=== PATIENT | female | born 1940 | race African-American/Black ===

== ENCOUNTER 2019-02-27 09:35 | Inpatient (IN) ==
[2019-02-27] MEDS ORDERED: ASPIRIN 325 MG TABLET PO STA (10:13)
[2019-02-27] MEDS ORDERED: ONDANSETRON 4 MG/2 ML VIAL IV PRN (10:46)
[2019-02-27] MEDS ORDERED: PROMETHAZINE 25 MG/1 ML VIAL IM PRN (10:46)
[2019-02-27] MEDS ORDERED: ACETAMINOPHEN 325 MG TABLET PO PRN (10:46)
[2019-02-27] MEDS ORDERED: BISACODYL 5 MG TABLET PO PRN (10:46)
[2019-02-27 10:48] LABS: Basophils % 0.3 % (0.0-0.8); Eosinophils % 0.4 % (0.00-10.9); Hematocrit 41.8 VOL% (35.7-47.0); Hemoglobin 13.3 GM/DL (12.0-16.0); Immature Granulocytes % 0.3 %; Immature Granulocytes Absolute 0.02 #; Lymphocytes # 1.7 10*3/uL (1.4-4.0); Lymphocytes % 25.2 % (21.3-54.2); Mean Corpuscular HGB Conc 31.8 GM/DL (32-36); Mean Corpuscular Hemoglobin 31 PG (27-34); Mean Corpuscular Volume 96.5 FL (87-102); Mean Platelet Volume 9.1 FL (9.6-12.0); Monocytes # 0.4 10*3/uL (0.11-0.8); Neutrophils # 4.6 10*3/uL (1.4-7.4); Neutrophils % 67.8 % (38.7-73.9); Platelet Count 277 T/CUMM (130-400); Red Blood Count 4.33 MC/CUMM (3.8-5.5); Red Cell Distribution Width 14.2 % (9.3-17.3); White Blood Count 6.8 T/CUMM (4-12)
[2019-02-27 10:55] LABS: PT Patient Result 10.7 SECS
[2019-02-27 11:07] LABS: Amorphous Crystals,Urine Few /HPF (Few); Apearance,Urine Slightly Hazy (Clear); Bilirubin,Urine Negative (Negative); Blood, Urine Negative (Negative); Glucose,Urine (UA) Negative (Negative); Ketones,Urine 5 mg/dL (Negative); Mucus,Urine Occasional /LPF (Occasional); Nitrite,Urine Negative (Negative); Protein,Urine Negative; RBC,Urine 1 /HPF (0-4); Urine Color Yellow (Yellow); Urine Specific Gravity 1.012 (1.001-1.035)
[2019-02-27 11:08] LABS: Calcium 9.8 MG/DL (8.5-10.1); Osmolality,Calculated 279.4 MOS/KG (273-304); Potassium 3.3 MMOL/L (3.5-5.1); Total Protein 8.4 G/DL (6.4-8.3)
[2019-02-27] MEDS: SODIUM CHLORIDE 0.9% 1,000 ML IV SCH (16:37)
[2019-02-27] MEDS: CLOPIDOGREL 75 MG TABLET PO SCH (16:37)
[2019-02-27] MEDS ORDERED: ENOXAPARIN 40 MG/0.4 ML SYRINGE SUBCUT SCH (18:00)
[2019-02-27] MEDS: POTASSIUM CHLORIDE 20 MEQ TABLET PO PRN ×3 (20:42→22:48)
[2019-02-27] MEDS: CARVEDILOL 12.5 MG TABLET PO SCH (20:42)
[2019-02-27] MEDS ORDERED: SIMVASTATIN 40 MG TABLET PO SCH (21:00)
[2019-02-28 05:25] LABS: Risk Ratio 3.62; VLDL CHOLESTEROL 13.4 MG/DL
[2019-02-28] MEDS: SODIUM CHLORIDE 0.9% 1,000 ML IV SCH ×2 (05:40→14:49)
[2019-02-28 06:16] LABS: Basophils % 0.3 % (0.0-0.8); Eosinophils % 0.3 % (0.00-10.9); Hematocrit 34.4 VOL% (35.7-47.0); Hemoglobin 10.9 GM/DL (12.0-16.0); Immature Granulocytes % 0.5 %; Immature Granulocytes Absolute 0.05 #; Lymphocytes # 1.1 10*3/uL (1.4-4.0); Lymphocytes % 10.4 % (21.3-54.2); Mean Corpuscular HGB Conc 31.7 GM/DL (32-36); Mean Corpuscular Hemoglobin 31 PG (27-34); Mean Corpuscular Volume 97.5 FL (87-102); Mean Platelet Volume 9.3 FL (9.6-12.0); Monocytes # 0.6 10*3/uL (0.11-0.8); Neutrophils # 8.3 10*3/uL (1.4-7.4); Neutrophils % 82.5 % (38.7-73.9); Platelet Count 231 T/CUMM (130-400); Red Blood Count 3.53 MC/CUMM (3.8-5.5); Red Cell Distribution Width 14.2 % (9.3-17.3); White Blood Count 10.1 T/CUMM (4-12)
[2019-02-28] MEDS ORDERED: LOSARTAN/HCTZ 50-12.5 MG TABLET PO SCH (09:00)
[2019-02-28] MEDS ORDERED: ASPIRIN 325 MG TABLET PO SCH (09:00)
[2019-02-28] MEDS ORDERED: CETIRIZINE 10 MG TABLET PO SCH (09:00)
[2019-02-28] MEDS ORDERED: amLODIPine 5 MG TABLET PO SCH (09:00)
[2019-02-28] MEDS ORDERED: CHOLECALCIFEROL 1,000 UNIT TABLET PO SCH (09:00)
[2019-02-28] MEDS ORDERED: POTASSIUM CHLORIDE 20 MEQ TABLET PO SCH (09:00)
[2019-02-28] MEDS ORDERED: PANTOPRAZOLE 40 MG TABLET PO SCH (09:00)
[2019-02-28] MEDS: CARVEDILOL 12.5 MG TABLET PO SCH (10:03)
[2019-02-28] MEDS: CLOPIDOGREL 75 MG TABLET PO SCH (10:03)
[2019-02-28] MEDS ORDERED: LIDOCAINE 1%/EPI INJ 20 ML VIAL ONE ×2 (11:10→11:11)
[2019-02-28] MEDS ORDERED: TISSUE ADHESIVE 1 EACH APPLICATOR TOP ONE (11:12)
[2019-02-28 15:10] VITALS: BP 144/91
[2019-02-28] MEDS ORDERED: ROSUVASTATIN 20 MG TABLET PO SCH (21:00)
== END 2019-02-28 15:15 | DRG 41 ==
LOC: N.ED 09:35 → N.EDINP 10:46 → N.5E 14:30
PROVIDERS: ADMIT Internal Medicine; ATTEND Internal Medicine

== ENCOUNTER 2019-07-23 04:02 | Observation (INO) ==
[2019-07-23 04:50] LABS: Basophils % 0.3 % (0.0-0.8); Eosinophils # 0.1 10*3/uL (0.0-0.87); Eosinophils % 0.7 % (0.00-10.9); Hematocrit 36.3 VOL% (35.7-47.0); Hemoglobin 11.8 GM/DL (12.0-16.0); Immature Granulocytes % 0.3 %; Immature Granulocytes Absolute 0.02 #; Lymphocytes # 1.7 10*3/uL (1.4-4.0); Lymphocytes % 23.6 % (21.3-54.2); Mean Corpuscular HGB Conc 32.5 GM/DL (32-36); Mean Corpuscular Volume 95.5 FL (87-102); Mean Platelet Volume 9.4 FL (9.6-12.0); Monocytes % 10.1 % (1.7-12.7); Platelet Count 160 T/CUMM (130-400); Red Cell Distribution Width 15.7 % (9.3-17.3)
[2019-07-23 05:00] LABS: Alanine Aminotransferase < 9 U/L (13-56); Albumin 3.4 G/DL (3.4-5.0); Alkaline Phosphatase 56 U/L (45-117); Aspartate Amino Transferase 11 U/L (0-37); Blood Urea Nitrogen 14 MG/DL (7-18); Glucose 113 MG/DL (74-106); Total Protein 6.9 G/DL (6.4-8.3)
[2019-07-23 05:07] LABS: Amorphous Crystals,Urine Moderate /HPF (Few); Apearance,Urine CLOUDY (Clear); Bilirubin,Urine Negative (Negative); Blood, Urine Negative (Negative); Glucose,Urine (UA) Negative (Negative); Ketones,Urine Negative (Negative); Nitrite,Urine Negative (Negative); Protein,Urine 30 MG/DL
[2019-07-23 05:08] LABS: Urine Color Yellow (Yellow)
[2019-07-23 05:25] LABS: Barbiturates Screen,Urine Negative (Negative); Benzodiazepines Screen,Urine Negative (Negative); Cannabinoid Screen,Urine Negative (Negative); Opiate Screen,Urine Negative (Negative); Phencyclidine Screen,Urine Negative (Negative)
[2019-07-23] MEDS ORDERED: ACETAMINOPHEN 325 MG TABLET PO PRN (08:48)
[2019-07-23] MEDS ORDERED: ASPIRIN EC 81 MG TABLET PO SCH (09:00)
[2019-07-23] MEDS ORDERED: ASPIRIN CHEW 81 MG TABLET PO ONE ×2 (11:00→12:28)
[2019-07-23] MEDS: SODIUM CHLORIDE 0.9% 1,000 ML IV SCH (11:10)
[2019-07-23] MEDS: PANTOPRAZOLE 40 MG TABLET PO SCH (11:11)
[2019-07-23] MEDS: CLOPIDOGREL 75 MG TABLET PO SCH (11:11)
[2019-07-23] MEDS: POTASSIUM CHLORIDE 20 MEQ TABLET PO SCH (11:11)
[2019-07-23] MEDS: ENOXAPARIN 40 MG/0.4 ML SYRINGE SUBCUT SCH (11:12)
[2019-07-23] MEDS ORDERED: PNEUMOCOCCAL VACCINE (13 VALENT) 0.5 ML SYRINGE IM ONE (12:57)
[2019-07-23] MEDS: CHOLECALCIFEROL 1,000 UNIT TABLET PO SCH (13:49)
[2019-07-23] MEDS ORDERED: ROSUVASTATIN 20 MG TABLET PO SCH (21:00)
[2019-07-24] MEDS: SODIUM CHLORIDE 0.9% 1,000 ML IV SCH ×2 (01:30→11:02)
[2019-07-24 04:36] LABS: Basophils % 0.5 % (0.0-0.8); Eosinophils # 0.1 10*3/uL (0.0-0.87); Hematocrit 33.3 VOL% (35.7-47.0); Immature Granulocytes % 0.3 %; Immature Granulocytes Absolute 0.02 #; Lymphocytes # 1.7 10*3/uL (1.4-4.0); Lymphocytes % 26.3 % (21.3-54.2); Mean Corpuscular Volume 94.3 FL (87-102); Mean Platelet Volume 9.4 FL (9.6-12.0); Monocytes % 16.8 % (1.7-12.7); Neutrophils % 55.1 % (38.7-73.9); Platelet Count 156 T/CUMM (130-400); Red Blood Count 3.53 MC/CUMM (3.8-5.5); Red Cell Distribution Width 15.6 % (9.3-17.3); White Blood Count 6.3 T/CUMM (4-12)
[2019-07-24 05:00] LABS: Blood Urea Nitrogen 9 MG/DL (7-18); Calcium 9.2 MG/DL (8.5-10.1); Glucose 96 MG/DL (74-106); HDL Cholesterol 17 MG/DL (40-60); Osmolality,Calculated 284.8 MOS/KG (273-304); Risk Ratio 2.94; Triglycerides 63 MG/DL (2-150); VLDL CHOLESTEROL 12.6 MG/DL
[2019-07-24 05:04] LABS: Eosinophils 5 % (0-10); Hypochromasia 1+; Lymphocytes 23 % (20-55); Platelet Estimate Adequate; Segmented Neutrophils 59 % (50-85); Total Cells Counted 100
[2019-07-24] MEDS: ENOXAPARIN 40 MG/0.4 ML SYRINGE SUBCUT SCH (08:51)
[2019-07-24] MEDS: CHOLECALCIFEROL 1,000 UNIT TABLET PO SCH (08:51)
[2019-07-24] MEDS: POTASSIUM CHLORIDE 20 MEQ TABLET PO SCH (08:51)
[2019-07-24] MEDS: CLOPIDOGREL 75 MG TABLET PO SCH (08:52)
[2019-07-24] MEDS: PANTOPRAZOLE 40 MG TABLET PO SCH (08:52)
[2019-07-24] MEDS ORDERED: ASPIRIN EC 81 MG TABLET PO SCH (09:00)
[2019-07-24 11:58] VITALS: BP 110/68
== END 2019-07-24 13:50 | disposition home or self-care (01) ==
LOC: EDUNIT# → EDBD → N.EDINP 04:02 → N.ED 04:02 → N.TELES 12:00
PROVIDERS: ADMIT Internal Medicine; ATTEND Internal Medicine

== ENCOUNTER 2020-01-11 09:18 | Inpatient (IN) ==
[2020-01-11 10:21] LABS: Basophils % 0.4 % (0.0-0.8); Eosinophils # 0.1 10*3/uL (0.0-0.87); Eosinophils % 1.2 % (0.00-10.9); Hematocrit 33.9 VOL% (35.7-47.0); Hemoglobin 11.3 GM/DL (12.0-16.0); Immature Granulocytes % 0.1 %; Immature Granulocytes Absolute 0.01 #; Lymphocytes # 1.5 10*3/uL (1.4-4.0); Lymphocytes % 21.8 % (21.3-54.2); Mean Corpuscular HGB Conc 33.3 GM/DL (32-36); Mean Corpuscular Volume 93.9 FL (87-102); Mean Platelet Volume 9.9 FL (9.6-12.0); Monocytes % 10.4 % (1.7-12.7); Neutrophils % 66.1 % (38.7-73.9); Platelet Count 166 T/CUMM (130-400); Red Blood Count 3.61 MC/CUMM (3.8-5.5); Red Cell Distribution Width 16.3 % (9.3-17.3); White Blood Count 6.7 T/CUMM (4-12)
[2020-01-11 10:40] LABS: INR 1.2; PT Patient Result 12.6 SECS (9.6-12.2); Partial Thromboplastin Time 27.1 SECS (20.8-36.0)
[2020-01-11 10:46] LABS: Albumin 3.5 G/DL (3.4-5.0); Calcium 9.6 MG/DL (8.5-10.1); Osmolality,Calculated 276.7 MOS/KG (273-304)
[2020-01-11 11:08] LABS: Amorphous Crystals,Urine Moderate /HPF (Few); Apearance,Urine CLOUDY (Clear); Bilirubin,Urine Negative (Negative); Blood, Urine Small mg/dL (Negative); Glucose,Urine (UA) Negative (Negative); Ketones,Urine Negative (Negative); Mucus,Urine Occasional /LPF (Occasional); Nitrite,Urine Negative (Negative); Protein,Urine 30 MG/DL; RBC,Urine 3 /HPF (0-4); Urine Color Yellow (Yellow); Urine Specific Gravity 1.015 (1.001-1.035); WBC,Urine 1 /HPF (0-6)
[2020-01-11] MEDS ORDERED: ACETAMINOPHEN 325 MG TABLET PO PRN (11:11)
[2020-01-11] MEDS ORDERED: MORPHINE 4 MG/1 ML VIAL IV PRN (11:11)
[2020-01-11] MEDS ORDERED: ONDANSETRON 4 MG/2 ML VIAL IV PRN (11:11)
[2020-01-11] MEDS ORDERED: ALBUTEROL/IPRATROPIUM 3 ML NEB RESP TX PRN (11:11)
[2020-01-11] MEDS ORDERED: TUBERCULIN SKIN TEST 0.1 ML SYRINGE INTRADERM ONE (13:38)
[2020-01-11] MEDS ORDERED: ENOXAPARIN 40 MG/0.4 ML SYRINGE SUBCUT SCH (21:00)
[2020-01-12 06:25] LABS: Basophils % 0.3 % (0.0-0.8); Eosinophils # 0.1 10*3/uL (0.0-0.87); Eosinophils % 1.1 % (0.00-10.9); Hematocrit 32.5 VOL% (35.7-47.0); Hemoglobin 10.9 GM/DL (12.0-16.0); Immature Granulocytes % 0.2 %; Immature Granulocytes Absolute 0.01 #; Lymphocytes # 1.6 10*3/uL (1.4-4.0); Lymphocytes % 24.9 % (21.3-54.2); Mean Corpuscular HGB Conc 33.5 GM/DL (32-36); Mean Corpuscular Volume 93.1 FL (87-102); Mean Platelet Volume 10.2 FL (9.6-12.0); Monocytes % 9.8 % (1.7-12.7); Neutrophils % 63.7 % (38.7-73.9); Platelet Count 172 T/CUMM (130-400); Red Blood Count 3.49 MC/CUMM (3.8-5.5); Red Cell Distribution Width 16.5 % (9.3-17.3); White Blood Count 6.4 T/CUMM (4-12)
[2020-01-12 06:38] LABS: Albumin 3.3 G/DL (3.4-5.0); Bilirubin,Total 1.6 MG/DL (0.2-1.0); Calcium 9.4 MG/DL (8.5-10.1); Osmolality,Calculated 275.7 MOS/KG (273-304); Risk Ratio 4.19; Thyroid Stimulating Hormone 1.75 uIU/ml (0.358-3.74); Total Protein 6.9 G/DL (6.4-8.3); VLDL CHOLESTEROL 15.6 MG/DL
[2020-01-12] MEDS: carvediloL 6.25 MG TABLET PO SCH ×2 (08:29→19:00)
[2020-01-12] MEDS: CHOLECALCIFEROL 1,000 UNIT TABLET PO SCH (08:29)
[2020-01-12] MEDS: POTASSIUM CHLORIDE 20 MEQ TABLET PO SCH (08:29)
[2020-01-12] MEDS: ROSUVASTATIN 20 MG TABLET PO SCH (21:00)
[2020-01-13 05:03] LABS: Basophils % 0.3 % (0.0-0.8); Eosinophils # 0.1 10*3/uL (0.0-0.87); Eosinophils % 2.1 % (0.00-10.9); Hematocrit 32.5 VOL% (35.7-47.0); Hemoglobin 10.8 GM/DL (12.0-16.0); Immature Granulocytes % 0.2 %; Immature Granulocytes Absolute 0.01 #; Lymphocytes # 1.6 10*3/uL (1.4-4.0); Lymphocytes % 25.2 % (21.3-54.2); Mean Corpuscular HGB Conc 33.2 GM/DL (32-36); Mean Corpuscular Volume 93.7 FL (87-102); Monocytes % 13.4 % (1.7-12.7); Neutrophils % 58.8 % (38.7-73.9); Platelet Count 173 T/CUMM (130-400); Red Blood Count 3.47 MC/CUMM (3.8-5.5); Red Cell Distribution Width 16.2 % (9.3-17.3); White Blood Count 6.2 T/CUMM (4-12)
[2020-01-13 05:30] LABS: Bilirubin,Total 1.3 MG/DL (0.2-1.0); Calcium 9.3 MG/DL (8.5-10.1); Osmolality,Calculated 275.7 MOS/KG (273-304); Total Protein 6.5 G/DL (6.4-8.3)
[2020-01-13] MEDS: carvediloL 6.25 MG TABLET PO SCH ×3 (06:25→17:48)
[2020-01-13] MEDS ORDERED: LIDOCAINE 1% 5 ML VIAL ONE (06:40)
[2020-01-13] MEDS ORDERED: ROPIVACAINE 0.5% 30 ML VIAL ONE ×2 (06:40→07:44)
[2020-01-13] MEDS ORDERED: DEXAMETHASONE 4 MG/1 ML VIAL ONE ×2 (06:40→09:34)
[2020-01-13] MEDS ORDERED: MIDAZOLAM 2 MG/2 ML VIAL ONE (06:47)
[2020-01-13] MEDS ORDERED: fentaNYL 100 MCG/2 ML VIAL ONE ×2 (06:47→09:34)
[2020-01-13] MEDS ORDERED: TRANEXAMIC ACID 1,000 MG/10 ML VIAL ONE ×2 (07:16→09:34)
[2020-01-13] MEDS ORDERED: ceFAZolin 1,000 MG VIAL ONE (07:16)
[2020-01-13] MEDS ORDERED: BUPIVACAINE MPF 0.25% 30 ML VIAL ONE (07:17)
[2020-01-13] MEDS ORDERED: VANCOMYCIN 1,000 MG VIAL ONE (07:57)
[2020-01-13] MEDS ORDERED: propofoL 200 MG/20 ML VIAL IV ONE (09:33)
[2020-01-13] MEDS ORDERED: LIDOCAINE 2% 5 ML VIAL ONE (09:33)
[2020-01-13] MEDS ORDERED: SEVOFLURANE 1 UNIT/15 MINUTE INH ONE (09:33)
[2020-01-13] MEDS ORDERED: GLYCOPYRROLATE 0.4 MG/2 ML VIAL ONE (09:34)
[2020-01-13] MEDS ORDERED: ETOMIDATE 40 MG/20 ML VIAL IV ONE (09:34)
[2020-01-13] MEDS ORDERED: PHENYLEPHRINE 1 MG/10 ML SYRINGE IV ONE (09:34)
[2020-01-13] MEDS ORDERED: ONDANSETRON 4 MG/2 ML VIAL ONE (09:34)
[2020-01-13] MEDS ORDERED: PHENYLEPHRINE 10 MG/1 ML VIAL IV ONE (09:34)
[2020-01-13] MEDS ORDERED: ROCURONIUM 100 MG/10 ML VIAL IV ONE (09:35)
[2020-01-13] MEDS ORDERED: SUCCINYLCHOLINE 200 MG/10 ML VIAL ONE (09:35)
[2020-01-13] MEDS ORDERED: NEOSTIGMINE 10 MG/10 ML VIAL ONE (09:35)
[2020-01-13] MEDS: POTASSIUM CHLORIDE 20 MEQ TABLET PO SCH (11:00)
[2020-01-13] MEDS: CHOLECALCIFEROL 1,000 UNIT TABLET PO SCH (11:00)
[2020-01-13] MEDS: ceFAZolin 1,000 MG in SYRINGE 1 EACH IV SCH ×2 (13:51→21:19)
[2020-01-13] MEDS: VANCOMYCIN INJ 1,000 MG in SODIUM CHLORIDE 0.9% 250 ML IV SCH (18:49)
[2020-01-13] MEDS: ROSUVASTATIN 20 MG TABLET PO SCH (21:19)
[2020-01-14] MEDS: VANCOMYCIN INJ 1,000 MG in SODIUM CHLORIDE 0.9% 250 ML IV SCH (05:53)
[2020-01-14 06:24] LABS: Basophils % 0.2 % (0.0-0.8); Hematocrit 27.3 VOL% (35.7-47.0); Immature Granulocytes % 0.4 %; Immature Granulocytes Absolute 0.04 #; Lymphocytes # 1.8 10*3/uL (1.4-4.0); Lymphocytes % 18.8 % (21.3-54.2); Mean Corpuscular Volume 93.5 FL (87-102); Mean Platelet Volume 10.2 FL (9.6-12.0); Monocytes % 15.6 % (1.7-12.7); Platelet Count 172 T/CUMM (130-400); Red Blood Count 2.92 MC/CUMM (3.8-5.5); Red Cell Distribution Width 16.2 % (9.3-17.3); White Blood Count 9.3 T/CUMM (4-12)
[2020-01-14 06:45] LABS: Alanine Aminotransferase < 9 U/L (13-56); Albumin 2.7 G/DL (3.4-5.0); Alkaline Phosphatase 59 U/L (45-117); Aspartate Amino Transferase 12 U/L (0-37); Blood Urea Nitrogen 19 MG/DL (7-18); Estimated Glom Filtration Rate 71 ML/MIN; Glucose 111 MG/DL (74-106); Osmolality,Calculated 275.8 MOS/KG (273-304); Total Protein 5.9 G/DL (6.4-8.3)
[2020-01-14 06:49] LABS: Lymphocytes 17 % (20-55); Segmented Neutrophils 72 % (50-85); Total Cells Counted 100
[2020-01-14 06:50] LABS: Atypical Lymphocytes Few; Hypochromasia 1+; Macrocytosis 1+; Platelet Estimate Adequate
[2020-01-14] MEDS ORDERED: ASPIRIN EC 81 MG TABLET PO SCH (09:00)
[2020-01-14] MEDS: CLOPIDOGREL 75 MG TABLET PO SCH (10:00)
[2020-01-14] MEDS: CHOLECALCIFEROL 1,000 UNIT TABLET PO SCH (10:00)
[2020-01-14] MEDS: carvediloL 6.25 MG TABLET PO SCH ×2 (10:00→16:54)
[2020-01-14] MEDS: POTASSIUM CHLORIDE 20 MEQ TABLET PO SCH (10:01)
[2020-01-14] MEDS ORDERED: ASPIRIN EC 325 MG TABLET PO SCH (10:35)
[2020-01-14] MEDS: ROSUVASTATIN 20 MG TABLET PO SCH (20:21)
[2020-01-15] MEDS: CHOLECALCIFEROL 1,000 UNIT TABLET PO SCH (10:00)
[2020-01-15] MEDS: CLOPIDOGREL 75 MG TABLET PO SCH (10:00)
[2020-01-15] MEDS: carvediloL 6.25 MG TABLET PO SCH (10:00)
[2020-01-15] MEDS: POTASSIUM CHLORIDE 20 MEQ TABLET PO SCH (10:00)
[2020-01-15 11:44] VITALS: BP 90/57
== END 2020-01-15 14:00 | DRG 470 ==
LOC: N.ED 09:18 → SUATTDRO 11:11 → N.EDINP 11:11 → N.3E 12:53
PROVIDERS: ADMIT Internal Medicine; ATTEND Family Medicine

== ENCOUNTER 2020-11-26 11:48 | Inpatient (IN) ==
[2020-11-26 13:10] LABS: Basophils % 0.1 % (0.0-0.8); Eosinophils % 0.4 % (0.00-10.9); Hematocrit 26.2 VOL% (35.7-47.0); Hemoglobin 8.1 GM/DL (12.0-16.0); Immature Granulocytes % 0.8 %; Immature Granulocytes Absolute 0.08 #; Lymphocytes % 9.4 % (21.3-54.2); Mean Corpuscular HGB Conc 30.9 GM/DL (32-36); Mean Corpuscular Volume 92.9 FL (87-102); Mean Platelet Volume 9.2 FL (9.6-12.0); Monocytes % 23.9 % (1.7-12.7); Neutrophils % 65.4 % (38.7-73.9); Platelet Count 112 T/CUMM (130-400); Red Blood Count 2.82 MC/CUMM (3.8-5.5); Red Cell Distribution Width 18.3 % (9.3-17.3); White Blood Count 10.3 T/CUMM (4-12)
[2020-11-26 13:19] LABS: Urine Appearance Turbid (Clear); Urine Color Red (Yellow)
[2020-11-26 13:21] LABS: Protein,Urine 3+ MG/DL
[2020-11-26 13:22] LABS: Amorphous Crystals,Urine Few /HPF (Few); Bilirubin,Urine Negative (Negative); Blood, Urine Large mg/dL (Negative); Glucose,Urine (UA) Trace mg/dL (Negative); Ketones,Urine Negative (Negative); Nitrite,Urine Negative (Negative); RBC,Urine TNTC /HPF (0-4); WBC,Urine Rare /HPF (0-6)
[2020-11-26 13:23] LABS: Bacteria,Urine 1+ /HPF (Few)
[2020-11-26 13:27] LABS: Calcium 9.3 MG/DL (8.5-10.1); Osmolality,Calculated 276.1 MOS/KG (273-304)
[2020-11-26 13:35] LABS: INR 1.4; PT Patient Result 15.1 SECS (9.8-11.9); Partial Thromboplastin Time 35.6 SECS (23.9-33.8)
[2020-11-26 14:18] LABS: Band Neutrophils 1 % (0-10); Lymphocytes 13 % (20-55); Segmented Neutrophils 73 % (50-85); Total Cells Counted 100
[2020-11-26 14:19] LABS: Anisocytosis 1+; Hypochromasia 1+; Platelet Estimate Adequate; Polychromasia 1+
[2020-11-26] MEDS ORDERED: ACETAMINOPHEN 325 MG TABLET PO PRN (15:57)
[2020-11-26] MEDS ORDERED: GLUCAGON 1 MG VIAL IM PRN ×2 (15:57)
[2020-11-26] MEDS ORDERED: ONDANSETRON 4 MG/2 ML VIAL IV PRN (15:57)
[2020-11-26] MEDS ORDERED: DEXTROSE 50% 25 GM/50 ML VIAL IV PRN ×2 (15:57)
[2020-11-26] MEDS: INSULIN REGULAR 100 UNIT/ML SUBCUT SCH (20:00)
[2020-11-27] MEDS: INSULIN REGULAR 100 UNIT/ML SUBCUT SCH ×5 (00:40→20:30)
[2020-11-27 05:50] LABS: Basophils % 0.1 % (0.0-0.8); Eosinophils % 0.4 % (0.00-10.9); Hematocrit 25.4 VOL% (35.7-47.0); Hemoglobin 7.8 GM/DL (12.0-16.0); Immature Granulocytes % 1.4 %; Immature Granulocytes Absolute 0.14 #; Lymphocytes % 9.9 % (21.3-54.2); Mean Corpuscular HGB Conc 30.7 GM/DL (32-36); Mean Corpuscular Volume 93.4 FL (87-102); Mean Platelet Volume 9.9 FL (9.6-12.0); Monocytes % 29.5 % (1.7-12.7); Neutrophils % 58.7 % (38.7-73.9); Red Blood Count 2.72 MC/CUMM (3.8-5.5); Red Cell Distribution Width 18.3 % (9.3-17.3); White Blood Count 9.8 T/CUMM (4-12)
[2020-11-27 05:54] LABS: Platelet Count 99 T/CUMM (130-400)
[2020-11-27 06:16] LABS: Albumin 1.9 G/DL (3.4-5.0); Calcium 9.3 MG/DL (8.5-10.1); Osmolality,Calculated 275.8 MOS/KG (273-304); Total Protein 6.4 G/DL (6.4-8.3)
[2020-11-27 07:35] LABS: Lymphocytes 9 % (20-55); Segmented Neutrophils 73 % (50-85); Total Cells Counted 100
[2020-11-27 07:36] LABS: Hypochromasia 1+; Microcytosis 1+
[2020-11-27 07:37] LABS: Platelet Estimate Decreased
[2020-11-27] MEDS: PANTOPRAZOLE 40 MG TABLET PO SCH (08:23)
[2020-11-27 11:00] LABS: Hematocrit 27.4 VOL% (35.7-47.0); Hemoglobin 8.5 GM/DL (12.0-16.0)
[2020-11-28 06:20] LABS: Basophils % 0.1 % (0.0-0.8); Eosinophils # 0.1 10*3/uL (0.0-0.87); Eosinophils % 0.6 % (0.00-10.9); Hemoglobin 7.5 GM/DL (12.0-16.0); Immature Granulocytes % 1.1 %; Lymphocytes % 10.9 % (21.3-54.2); Mean Corpuscular HGB Conc 31.3 GM/DL (32-36); Mean Corpuscular Volume 91.6 FL (87-102); Mean Platelet Volume 10.9 FL (9.6-12.0); Monocytes % 27.9 % (1.7-12.7); Neutrophils % 59.4 % (38.7-73.9); Platelet Count 90 T/CUMM (130-400); Red Blood Count 2.62 MC/CUMM (3.8-5.5); Red Cell Distribution Width 18.1 % (9.3-17.3); White Blood Count 9.5 T/CUMM (4-12)
[2020-11-28 06:39] LABS: Calcium 8.3 MG/DL (8.5-10.1); Osmolality,Calculated 271.2 MOS/KG (273-304)
[2020-11-28 06:58] LABS: Lymphocytes 7 % (20-55); Segmented Neutrophils 76 % (50-85); Total Cells Counted 100
[2020-11-28 06:59] LABS: Hypochromasia 1+; Platelet Estimate Decreased
[2020-11-28] MEDS: INSULIN REGULAR 100 UNIT/ML SUBCUT SCH ×4 (07:05→20:13)
[2020-11-28] MEDS: PANTOPRAZOLE 40 MG TABLET PO SCH (08:13)
[2020-11-28] MEDS ORDERED: SODIUM CHLORIDE 0.9% 1,000 ML IV PRN (11:07)
[2020-11-28 16:14] LABS: Hematocrit 30.5 VOL% (35.7-47.0)
[2020-11-28 16:21] LABS: Hemoglobin 9.6 GM/DL (12.0-16.0)
[2020-11-29] MEDS: INSULIN REGULAR 100 UNIT/ML SUBCUT SCH ×4 (07:18→20:12)
[2020-11-29] MEDS: PANTOPRAZOLE 40 MG TABLET PO SCH (08:38)
[2020-11-29 11:06] LABS: Calcium 9.3 MG/DL (8.5-10.1)
[2020-11-29] MEDS ORDERED: POTASSIUM CHLORIDE 20 MEQ TABLET PO ONE (23:27)
[2020-11-29] MEDS ORDERED: POTASSIUM CHLORIDE RIDER 10 MEQ in PREMIX 1 EACH IV PRN (23:29)
[2020-11-30] MEDS ORDERED: cefTRIAXone 1,000 MG in SYRINGE 1 EACH IV ONE (06:30)
[2020-11-30] MEDS: INSULIN REGULAR 100 UNIT/ML SUBCUT SCH ×3 (08:19→18:18)
[2020-11-30 08:21] LABS: Basophils % 0.2 % (0.0-0.8); Eosinophils % 0.3 % (0.00-10.9); Hematocrit 30.5 VOL% (35.7-47.0); Hemoglobin 9.7 GM/DL (12.0-16.0); Lymphocytes # 1.2 10*3/uL (1.4-4.0); Lymphocytes % 12.2 % (21.3-54.2); Mean Corpuscular HGB Conc 31.8 GM/DL (32-36); Mean Corpuscular Volume 90.2 FL (87-102); Monocytes % 30.7 % (1.7-12.7); Neutrophils % 55.6 % (38.7-73.9); Red Blood Count 3.38 MC/CUMM (3.8-5.5); Red Cell Distribution Width 17.4 % (9.3-17.3); White Blood Count 9.7 T/CUMM (4-12)
[2020-11-30 08:30] LABS: Platelet Count 82 T/CUMM (130-400)
[2020-11-30 08:41] LABS: Eosinophils 1 % (0-10); Hypochromasia 1+; Lymphocytes 11 % (20-55); Microcytosis 1+; Ovalocytes Slight; Platelet Estimate Decreased; Segmented Neutrophils 69 % (50-85); Total Cells Counted 100
[2020-11-30 08:48] LABS: Calcium 9.1 MG/DL (8.5-10.1)
[2020-11-30] MEDS: PANTOPRAZOLE 40 MG TABLET PO SCH (09:00)
[2020-11-30] MEDS ORDERED: PHENYLEPHRINE 1 MG/10 ML SYRINGE IV ONE (12:52)
[2020-11-30] MEDS ORDERED: LIDOCAINE 2% 5 ML VIAL ONE (13:34)
[2020-11-30] MEDS ORDERED: propofoL 200 MG/20 ML VIAL IV ONE (13:34)
[2020-11-30] MEDS ORDERED: ACETAMINOPHEN 1,000 MG/100 ML VIAL IV ONE (13:58)
[2020-11-30] MEDS ORDERED: ACETAMINOPHEN INJ 1,000 MG in PREMIX 1 EACH IV ONE (13:59)
[2020-11-30 19:01] VITALS: BP 104/61
== END 2020-11-30 19:32 | disposition home or self-care (01) | DRG 693 ==
LOC: N.ED 11:48 → N.EDINP 11:48 → SUATTDRO 15:57 → N.3E 17:10 → SUATTDRO 11-29 12:16
PROVIDERS: ADMIT Internal Medicine; ATTEND Internal Medicine Geriatric Medicine